=== PATIENT | male | born 1995 | race African-American/Black ===

== ENCOUNTER 2020-01-28 18:36 | Emergency (ER) | payer SELFPAY ==
[~2020-01-28] VITALS: Ht 182.9 cm; Wt 81.6 kg
[2020-01-28 18:46] VITALS: BP 150/87
[2020-01-28] MEDS ORDERED: PHENYLEPHRINE 10 MG/ML VIAL ONE (18:51)
--- NOTE | 2020-01-28 19:00 | NUR ---
DR. MCCLOUD INJECTED 1ML OF PHENYLEPHRINE TO PENILE AREA. PT LILIA WELL.
[2020-01-28] MEDS ORDERED: IBUPROFEN 600 MG TABLET ONE (19:04)
[2020-01-28] MEDS ORDERED: IBUPROFEN 600 MG TABLET PO ONE (19:30)
== END 2020-01-28 19:29 | disposition home or self-care (01) ==
LOC: ER 18:40
DX: N48.39 Other priapism (principal); G25.79 Other drug induced movement disorders
CPT/HCPCS: 96372; 99283; J2370; J7030